=== PATIENT | male | born 1955 | race Caucasian/White ===

== ENCOUNTER 2021-04-25 01:07 | Outpatient (RCR) | payer MEDICARE, SELFPAY | END 2021-04-30 23:59 | disposition home or self-care (01) | LOC: INF 01:07 | PROVIDERS: Visit Provider Family Medicine | DX: Z29.8 Encounter for other specified prophylactic measures (principal); D84.89 Other immunodeficiencies | CPT/HCPCS: 96372; Q0220 ==

== ENCOUNTER 2021-06-22 03:06 | Outpatient (RCR) | payer MEDICARE, SELFPAY | END 2021-06-28 23:59 | disposition home or self-care (01) | LOC: INF 03:06 | PROVIDERS: Visit Provider Nurse Practitioner Acute Care | DX: D84.89 Other immunodeficiencies (principal); Z29.8 Encounter for other specified prophylactic measures | CPT/HCPCS: 96372; Q0221 ==